=== PATIENT | male | born 1950 | race Caucasian/White ===

== ENCOUNTER → 2021-05-02 10:32 | Outpatient (CLI) | payer MEDICARE, SELFPAY ==
[2021-05-02 11:56] LABS: Iron 36 ug/dL (49-181)
[2021-05-02 12:07] LABS: Percent Iron Saturation 8 % (20-50); Total Iron Binding Capacity 447 ug/dL (261-462)
[2021-05-02 13:15] LABS: Ferritin 6 ng/mL (18-464)
== END ==
PROVIDERS: PCP Physician Assistant; Referring Provider Physician Assistant; Visit Provider Physician Assistant
DX: D64.9 Anemia, unspecified (principal)
CPT/HCPCS: 36415; 82728; 83540; 83550